=== PATIENT | male | born 1935 | race Caucasian/White ===

== ENCOUNTER 2023-04-23 00:18 | Emergency (ER) | payer MEDICARE, OTHER, SELFPAY ==
[2023-04-23 00:18] VITALS: BMI 25.6
[2023-04-23 00:21] VITALS: BP 152/74
--- NOTE | 2023-04-23 01:03 | EDRN ---
states that this was the worse pain he ever had in his shoulder. Pt has no chest pain. No SOB. Pt hard of hearing.
--- NOTE | 2023-04-23 01:43 | ED.GENMED ---
History of Present Illness
General
Chief Complaint: Musculo-Skeletal Complaint
Source: patient and spouse
Exam Limitations: none
Time Seen by Provider: 04/23/23 01:17
Travel History
Have you had any contact with someone who has COVID-19?: No
Do you have any symptoms of coronavirus? Fever > 100 degrees, chills, cough, shortness of breath, sore throat, loss of taste or smell, muscle aches, or headache?: No
History of Present Illness
History of Present Illness:
This is a 87 year old male that comes in with c/o left shoulder pain. States that he has had injection into the left shoulder in the past. states that he is not a candidate for surgery. States that his pain started 2 hours ago. States that he
feels better now after his gave him Tylenol and iced the shoulder. states that she was worried about his heart. Denies any fever, chills, chest pain, SOB, abd pain, nausea, vomiting, diarrhea, headache, dizziness, urinary burning as he
urinates 3-4 times daily.
Past History
Past History
ED Past Medical History: Arrthythmia (Atrial fib), CAD, CHF, HTN, Hypercholesterolemia, Renal failure (Dialysis //), Hypothyroidism, Other (Vertigo, Arm and left numbness, Hernia) and Other (dementia)
ED Past Surgical History: Cardiac (CABG, watchman's Procedure, Pacemaker), Orthopedic (Left Knee replacement, Right Hip ORIF), Tonsilectomy and Other (Right upper arm AV fistula)
Social History
Tobacco: Former smoker
Alcohol: Occasional
Drug: None
Personal:
Living: with family
Employment: Retired
Family History
Family History: Other (Noncontributory)
Review of Systems
Review of Systems
All Other Systems: ROS reviewed and negative except as documented in HPI and ROS
Constitutional: Reports no symptoms; Denies fever or chills
EENT: Reports no symptoms
Respiratory: Reports no symptoms; Denies cough or trouble breathing
Cardiac: Reports no symptoms; Denies chest pain
ABD/GI: Reports no symptoms; Denies abdominal pain, nausea, vomiting or diarrhea
: Denies dysuria, frequency or urgency
Musculoskeletal: Reports joint pain (Left shoulder pain)
Skin: Reports no symptoms
Neurological: Reports no symptoms; Denies dizzy or headache
Psychiatric: Reports no symptoms
Phy Exam
General Physical Exam
General Presentation: no apparent distress (Patient was sleeping upon entering the room. )
General age: appears stated age
General Skin: warm and dry
General Habitus: elderly
General Mental: alert
General Hydration: appears well hydrated
ENT Exam
ENT Exam: TM's normal (Moderate amount of Cerumin), pharynx normal and neck supple
Eye Exam
Eye Exam: EOMI
Cardiovascular Exam
Cardiovascular Exam: no edema, normal peripheral pulses, pacemaker and other (Murmur)
Pulmonary Exam
Pulmonary Exam: lungs clear, no respiratory distress, no rales, chest non tender, no crackles, no rhonchi, no wheezing and no cough
Gastrointestinal Exam
Gastrointestinal Exam: normal bowel sounds, non tender, soft, no organomegaly, no pulsatile mass and non distended
Musculoskeletal Exam
Musculoskeletal Exam: full ROM, no edema and other
Skin Exam
Skin Exam: normal color, warm/dry, no rash, no petechia and other (Right upper arm on the medial aspect Dialysis fistula. Large contusion noted. ( states that this has been there), )
Psychiatric Exam
Psychiatric Exam: normal mood/affect
Course
Orders/Labs/Results
Orders:
Orders
04/23/23 00:58
EKG [Electrocardiogram (*1)] Urgent
Reason for Study: Chest Pain
Other Reason for Exam: L arm /shoulder pain with cardiac hx
04/23/23 00:59
EKG- Treatment ONCE
04/23/23 02:19
Complete Blood Count/With Diff Urgent
Comprehensive Metabolic Panel Urgent
Troponin I Urgent
Abnormal Lab Results
04/23/23
02:19
RBC 2.93 L 10^6/uL
(4.70-6.10)
Hgb 9.5 L g/dL
(13.0-18.0)
Hct 29.2 L %
(39.0-52.0)
MCV 99.7 H fL
(80.0-94.0)
MCH 32.4 H pg
(27.0-31.0)
MCHC 32.5 L g/dL
(33.0-37.0)
RDW 15.0 H %
(11.5-14.5)
MPV 10.8 H fL
(7.4-10.4)
Absolute Neuts (auto) 7.6 H 10^3/uL
(1.4-6.5)
Absolute Lymphs (auto) 0.6 L 10^3/uL
(1.2-3.4)
Neutrophils % 84.0 H %
(42.2-75.2)
Lymphocytes % 6.9 L %
(20.5-51.1)
Sodium 133 L mmol/L
(135-145)
Chloride 95 L mmol/L
(98-107)
BUN 75 H mg/dl
(9-20)
Creatinine 6.8 H* mg/dL
(0.7-1.3)
Glucose 119 H mg/dl
(70-99)
Alkaline Phosphatase 128 H U/L
(38-126)
04/23/23 02:19
04/23/23 02:19
H/H slightly low low, Anemic, Sodium slightly low. Chloride slightly low, Chronic renal failure. Glucose nonfasting. Alk phos very slightly elevated. Troponin 0.014
Vital Signs
Initial and Last Documented VS:
Initial Vital Signs
Temp Pulse Resp BP Pulse Ox
97.4 F 66 18 152/74 100
04/23/23 00:21 04/23/23 00:21 04/23/23 00:21 04/23/23 00:21 04/23/23 00:21
Last Documented Vital Signs
Temp Pulse Resp BP Pulse Ox
97.4 F 66 18 152/74 100
04/23/23 00:21 04/23/23 00:21 04/23/23 00:21 04/23/23 00:21 04/23/23 00:21
MDM/Problems Addressed
Differential Diagnosis Includes:
Chronic shoulder pain. CAD
MDM/Problems Addressed:
This is a 87 year old male that comes in with c/o left shoulder pain. States that his pain started 2 hours ago. gave patient Tylenol and iced the shoulder.
Will check labs but at this time patient is comfortable.
Chronic conditions affecting care: CAD and Other (Chronic shoulder pain)
Acute Exacerbation and/or Progression of Chronic Illness: CAD and Other (Chronic shoulder pain)
*Pulse Oximetry
Patient hypoxic: no
*EKG
Interpreted by ED Provider?: Yes
Heart Rate: 68
Rate: normal
Rhythm: av sequential
[place]: left axis deviation
Ischemia: no ischemia
*Critical Care Note
Total Time (30-74mins, 75-104mins- exclusive of procedures): Not Applicable
ED Attending Note
-
Portions of this chart may have been created with voice recognition software.� Occasional wrong word or��sound alike� substitutions may have occurred due to the inherent limitations of voice recognition software.
Discharge Plan
Departure
Patient Disposition: Home (Routine Discharge)
Date of Disposition: 04/23/23
Time of Disposition: 03:13
Patient with high blood pressure during this ER visit?: Yes
Condition: Good
Covid-19: Not Applicable
Discharge Problem:
Chronic left shoulder pain
Instructions: Shoulder Pain (DC), BLOOD PRESSURE
Prescriptions:
No Action
tamsulosin 0.4 MG capsule
0.4 mg PO HS
donepezil 10 MG tablet
10 mg PO HS
rosuvastatin 20 MG tablet
20 mg PO HS
calcium acetate 667 MG tablet
1,334 mg PO MEALS
escitalopram oxalate 20 MG tablet
30 mg PO DAILY
melatonin 5 MG tablet
5 mg PO HS
zolpidem 5 MG tablet
5 mg PO HS
Patient Comments:
05/09/2022: last filled 03/26/22, 90 tabs for 90 days from [facility]
Triphrocaps 1 mg Capsule
1 cap PO DAILY Qty: 0
amiodarone 200 mg tablet
200 mg PO DAILY
aspirin 81 mg Tablet,Delayed Release (Dr/Ec)
81 mg PO Q48H
levothyroxine 100 mcg tablet
175 mcg PO DAILY@1700
calcium carbonate [Calcium 600] 600 mg calcium (1,500 mg) Tablet
600 mg PO BID
metoprolol succinate 25 mg tablet extended release 24 hr
25 mg PO DAILY
midodrine 10 mg tablet
15 mg PO TID
Rx Instructions:
hold if SBP>130
Referrals:
Schuyler Fonseca MD [Family Provider] - Call in 1-3 days for appt
Activity Restrictions/Additional Instructions:
As discussed, your blood work shows you are a little anemic and have Chronic renal failure. Your Troponin is normal and your ECG is paced. This is most likely your chronic shoulder pain. Please use Tylenol arthritis for pain as this is the max
amount of Tylenol that you can use. Continue to use heat or ice to the shoulder which ever makes you feel better. Follow up with the family doctor and your educational technology specialist for further evaluation. IF YOU HAVE ANY OTHER CONCERNS PLEASE RETURN
TO THE EMERGENCY ROOM.
Interventions
Interventions:
*Risk Screen - Suicide Last Done: 04/23/23 00:21
*General Assessment Last Done: 04/23/23 01:00
*Neglect/Abuse Screening Last Done: 04/23/23 00:21
ED- Fall Risk Assessment Last Done: 04/23/23 01:00
*ED COVID-19 Vaccine History Last Done: 04/23/23 01:00
ED-Musculoskeletal Assessment Last Done: 04/23/23 01:02
[2023-04-23 02:40] LABS: % Basophils 0.2 % (0-2); % Eosinophils 1.7 % (0-6); % Immature Granulocytes 0.4 % (0-0.5); % Lymphocytes 6.9 % (20.5-51.1); % Monocytes 6.8 % (1.7-9.3); Absolute Eosinophils 0.2 10^3/uL (0-0.7); Absolute Lymphocytes 0.6 10^3/uL (1.2-3.4); Absolute Monocytes 0.6 10^3/uL (0.1-0.6); Absolute Neutrophils 7.6 10^3/uL (1.4-6.5); Hematocrit 29.2 % (39.0-52.0); Hemoglobin 9.5 g/dL (13.0-18.0); Mean Corp Hgb Conc. 32.5 g/dL (33.0-37.0); Mean Corpuscular Hgb 32.4 pg (27.0-31.0); Mean Corpuscular Volume 99.7 fL (80.0-94.0); Mean Platelet Volume 10.8 fL (7.4-10.4); Nucleated Red Blood Cells % 0 % (-); Platelet Count 151 10^3/uL (130-400); Red Blood Cell Count 2.93 10^6/uL (4.70-6.10); White Blood Cell Count 9.1 10^3/uL (4.8-10.8)
[2023-04-23 02:43] VITALS: BP 125/63
[2023-04-23 03:00] VITALS: BP 134/64
[2023-04-23 03:00] LABS: Troponin I 0.014 ng/ml
[2023-04-23 03:10] LABS: ALT (SGPT) 21 U/L (0-50); AST (SGOT) 25 U/L (17-59); Albumin 3.7 g/dl (3.5-5.0); Alkaline Phosphatase 128 U/L (38-126); Blood Urea Nitrogen 75 mg/dl (9-20); Calcium 8.5 mg/dl (8.4-10.2); Carbon Dioxide 23 mmol/L (22-30); Chloride 95 mmol/L (98-107); Estimated Creatinine Clearance 8 ml/min; Glucose 119 mg/dl (70-99); Potassium 4.1 mmol/L (3.5-5.1); Sodium 133 mmol/L (135-145); Total Bilirubin 0.8 mg/dl (0.2-1.3); Total Protein 6.4 g/dl (6.3-8.2); eGFR 7.21
== END 2023-04-23 03:30 | disposition home or self-care (01) ==
LOC: EMR 00:18
PROVIDERS: Clinical Nurse Specialist Family Health; EMERGENCY PHYSICIAN Emergency Medicine; FAMILY PHYSICIAN Internal Medicine
DX: M25.512 Pain in left shoulder (principal); G89.29 Other chronic pain; I25.10 Atherosclerotic heart disease of native coronary artery without angina pectoris; I13.2 Hypertensive heart and chronic kidney disease with heart failure and with stage 5 chronic kidney disease, or end stage renal disease; N18.6 End stage renal disease; Z87.891 Personal history of nicotine dependence; Z95.0 Presence of cardiac pacemaker
CPT/HCPCS: 99284; 80053; 84484; 85025; 93005

== ENCOUNTER 2023-06-17 20:37 | Emergency (ER) | payer MEDICARE, OTHER, SELFPAY ==
[2023-06-17 20:39] VITALS: BP 159/80
== END 2023-06-17 23:23 ==
LOC: EMR 20:37
PROVIDERS: EMERGENCY PHYSICIAN Emergency Medicine
DX: M79.602 Pain in left arm (principal); Z53.21 Procedure and treatment not carried out due to patient leaving prior to being seen by health care provider
CPT/HCPCS: 73030